=== PATIENT | female | born 1950 | race Caucasian/White ===

== ENCOUNTER 2025-02-14 14:29 | Emergency (ER) | payer OTHER, SELFPAY ==
[2025-02-14 14:34] VITALS: BP 188/107
--- NOTE | 2025-02-14 17:54 | ED.GENMED ---
History of Present Illness
General
Chief Complaint: Musculo-Skeletal Complaint
Source: patient
Time Seen by Provider: 02/14/25 17:44
History of Present Illness
History of Present Illness:
74-year-old female presents emergency room complaining of right wrist pain. She slipped on ice while going up to feed her horses. She has pain and swelling in the right wrist. She actually had surgery to repair a broken wrist several years ago.
This surgery was performed in [place]. She has had surgery on her other wrist by Dr. Melendez. She wishes to continue to see Dr. Melendez.
Past History
Past History
ED Past Medical History: Cancer (Squamous skin cancer), Psychiatric (anxiety) and Other (TGA followed by Neuro)
ED Past Surgical History: Orthopedic
Social History
Tobacco: Non-smoker
Personal:
Living: with family
Phy Exam
Physical Exam
Physical Exam:
General: Awake, Alert, Oriented X3. No acute distress.
Vitals: unremarkable
Head: Atraumatic
Eyes: Pupils equal, EOMI
Throat: Airway intact, no exudates
Neck: Trachea midline
Neuro: Nonfocal
Skin: Warm, dry, no rash
Extremities: pulses equal b/l, no edema. Moderate swelling noted right distal forearm. Sensation intact. Neurologic exam intact. Sensation intact.
Course
Orders/Labs/Results
Orders:
Orders
02/14/25 14:32
Wrist, Right 3 Views [CR Wrist - Right Min 3 Views] Urgent
Comment:
Reason For Exam: injury to R wrist with pain and swelling.
02/14/25 17:54
Splints/Slings/Crut- Treatment ONCE
Sling to: Right Arm
Location: Right
Type of Splint: Short Arm
Vital Signs
Initial and Last Documented VS:
Initial Vital Signs
Temp Pulse Resp BP Pulse Ox
98.7 F 94 18 188/107 98
02/14/25 14:34 02/14/25 14:34 02/14/25 14:34 02/14/25 14:34 02/14/25 14:34
Last Documented Vital Signs
Temp Pulse Resp BP Pulse Ox
98.7 F 94 18 188/107 98
02/14/25 14:34 02/14/25 14:34 02/14/25 14:34 02/14/25 14:34 02/14/25 18:00
MDM/Problems Addressed
Differential Diagnosis Includes:
Radius fracture, ulnar fracture, sprain
MDM/Problems Addressed:
Patient presents with right wrist pain after fall. She is left-hand dominant. Imaging shows what appears to be an acute fracture. There is also hardware from previous surgical intervention. There does not appear to be any need for reduction.
Patient will be placed in a splint. She will follow-up with Dr. Melendez.
*Radiology
Radiology exam reviewed: preliminary read by ED provider (Distal radius fracture, ulnar styloid fracture)
*Pulse Oximetry
SaO2: 98
Oxygen Mode of Delivery: Room air
Patient hypoxic: no
*Critical Care Note
Total Time (30-74mins, 75-104mins- exclusive of procedures): Not Applicable
ED Attending Note
-
Portions of this chart may have been created with voice recognition software.� Occasional wrong word or��sound alike� substitutions may have occurred due to the inherent limitations of voice recognition software.
Discharge Plan
Departure
Patient Disposition: Home (Routine Discharge)
Date of Disposition: 02/14/25
Time of Disposition: 17:56
Patient with high blood pressure during this ER visit?: Yes
Condition: Good
Discharge Problem:
Fracture of wrist
Instructions: BLOOD PRESSURE
Prescriptions:
No Action
ferrous sulfate [FeroSul] 325 MG tablet
325 mg PO DAILY Qty: 30 0RF
docusate sodium 100 MG capsule
100 mg PO BIDPRN PRN (Reason: No BM > 24 hours) Qty: 30 0RF
Referrals:
Keith Melendez MD [Active, Orthopedics]
Activity Restrictions/Additional Instructions:
Please call Dr. Melendez's office for follow-up appointment. Keep the splint in place until you follow-up. You can take Tylenol and ibuprofen for pain.
Interventions
Interventions:
*General Assessment Last Done: 02/14/25 18:55
*Neglect/Abuse Screening Last Done: 02/14/25 18:55
*ED COVID-19 Vaccine History Last Done: 02/14/25 18:57
*ED Influenza Vaccine History Last Done: 02/14/25 18:55
[facility] Fall Risk Assessment Tool Last Done: 02/14/25 18:55
*Risk Screen - Suicide (C-SSRS) Last Done: 02/14/25 18:55
*Nursing Disposition Last Done: 02/14/25 18:55
ED-Musculoskeletal Assessment Last Done: 02/14/25 18:55
Discharge Date and Time
Discharge Date/Time: 02/14/25 18:59
Print Language: IRAQI
== END 2025-02-14 18:59 | disposition home or self-care (01) ==
LOC: EMR 14:29
PROVIDERS: EMERGENCY PHYSICIAN Emergency Medicine; FAMILY PHYSICIAN Family Medicine
DX: S52.591A Other fractures of lower end of right radius, initial encounter for closed fracture (principal); S52.611K Displaced fracture of right ulna styloid process, subsequent encounter for closed fracture with nonunion; W00.0XXA Fall on same level due to ice and snow, initial encounter
CPT/HCPCS: 29125; 99283; 73110